=== PATIENT | male | born 1945 | race Caucasian/White ===

== ENCOUNTER 2023-12-07 04:17 | Inpatient (IN) | payer MEDICARE, SELFPAY ==
[2023-12-07] VITALS (19 sets, daily range): BP systolic 90–160; BP diastolic 40–72; PULSE 51–76; RESP 12–24; TEMP 36.5–37.2; O2SAT 86–99; BMI 32.0
--- NOTE | ~2023-12-07 | XR_ITS ---
EXAMINATION: XR chest 1V DATE: 12/07/2023 05:34 INDICATION: Cough. TECHNIQUE: A single frontal view of the chest was obtained. COMPARISON: None. FINDINGS: There is mild elevation of right hemidiaphragm. A calcified right lung nodule and calcified right hilar lymph nodes are consistent with old granulomatous disease. No pleural effusion or pneumo thorax. The heart size is normal. IMPRESSION: 1. No acute cardiopulmonary disease. Reviewed, dictated and finalized at location A.
--- NOTE | ~2023-12-07 | NM_ITS ---
Nuclear Medicine Procedure: Perfusion/Ventilation Lung Scan History: Hypoxia. Interpretation: Following inhalation of 10.4 mCi. of Xenon-133, there is symmetrical Xenon entry bila terally with no evidence for retention on the delayed washout images. 5.5 mCi. of Technetium-labeled microspheres were injected intravenously and multiple images obtained in 8 projections revealed normal perfusion to the lungs without any segmental or subsegmental defects . Impression: Low probability for pulmonary embolus. Reviewed, dictated and finalized at location . Impression: Low probability for pulmonary embolus.
--- NOTE | ~2023-12-07 | CT_ITS ---
EXAMINATION:CT diagnostic chest wo con DATE: 12/07/2023 07:37 INDICATION: Hypoxia. Respiratory failure. TECHNIQUE: Computed tomography (CT) of the chest was performed without intravenous contrast. Automate d exposure control and iterative reconstruction technique were employed. The dose-length product (DLP ) was 275.81 mGy-cm. COMPARISON: None. FINDINGS: There is mild scarring at the lung apices. There is mild atelectasis bilaterally. A calcifi ed right lung nodule and calcified right hilar and mediastinal lymph nodes are consistent with old gr anulomatous disease. No pleural effusion. The heart size is normal. There are coronary artery calcifi cations. No pericardial effusion. Calcifications in the liver and spleen are consistent with old gran ulomatous disease. There is moderate thoracic spondylosis. There are multiple chronic vertebral body fractures. IMPRESSION: 1. Mild atelectasis in the lungs. Mild scarring at the lung apices. Reviewed, dictated and finalized at location A.
--- NOTE | ~2023-12-07 | CT_ITS ---
EXAMINATION: CT brain wo con DATE: 12/07/2023 05:32 INDICATION: Altered mental status. TECHNIQUE: Computed tomography (CT) of the head was performed without intravenous contrast. The mA wa s adjusted according to patient size. Iterative reconstruction technique was employed. The dose-lengt h product was 1362.00 mGy-cm. COMPARISON: None FINDINGS: There are scattered areas of low attenuation in the cerebral white matter. There is no intr acranial hemorrhage, acute infarction, or abnormal intracranial mass lesion. The ventricles are lewis l in size. There are likely changes of ocular lens replacement surgeries. The paranasal sinuses are c lear. There is a small left mastoid effusion. IMPRESSION: 1. Moderate nonspecific cerebral white matter disease, which likely represents chronic small vessel i schemic disease. Reviewed, dictated and finalized at location A. IMPRESSION: 1. Moderate nonspecific cerebral white matter disease, which likely represents chronic small vessel ischemic disease.
--- NOTE | ~2023-12-07 | MR_ITS ---
EXAMINATION: MR brain/brain stem wo/w con DATE: 12/07/2023 14:31 INDICATION: Transient dizziness and confusion. Dysarthria. TECHNIQUE: Magnetic resonance imaging (MRI) of the brain and brainstem was performed without and with 17 mL MultiHance intravenous contrast. COMPARISON: Head CT 12/07/2023 FINDINGS: There are scattered areas of nonspecific increased T2-weighted signal intensity in the cere bral and cerebellar white matter. There is no intracranial hemorrhage, acute infarction, or abnormal intracranial mass lesion. The ventricles are normal in size. There are bilateral mastoid effusions, l eft worse than right. There are likely changes of ocular lens replacement surgeries. The paranasal si nuses are clear. IMPRESSION: 1. Moderate nonspecific cerebral and cerebellar white matter disease, which likely represents chronic small vessel ischemic disease. Reviewed, dictated and finalized at location A. IMPRESSION: 1. Moderate nonspecific cerebral and cerebellar white matter disease, which lik roseanna represents chronic small vessel ischemic disease.
[2023-12-07 04:23] LABS: Glucose Point of Care 91 mg/dl (65-105)
--- NOTE | 2023-12-07 04:28 | ECG_ITS ---
Test Date: 2023-12-07 04:31:46 Measurements Intervals [place] Rate: 74 P: 11 CT: 170 QRS: 0 QRSD: 155 T: -18 QT: 382 QTc: 425 Interpretive Statements SINUS RHYTHM RIGHT BUNDLE BRANCH BLOCK BASELINE ARTIFACT- I, III, AVR, AVL, AVF, V4-V6 ABNORMAL ECG No previous ECG available for comparison Electronically Signed On 12-07-2023 07:53:24 CDT by Shawn Yanez D.O.
[2023-12-07 05:02] LABS: Alveolar/Arterial O2 Gradient 97.7 mmHg; Fractional Inspired Oxygen 28 %; HCO3 ABG 21.6 mEq/l (22.0-26.0); Oxygen Content ABG 14.9 %vol (16.0-22.0); Oxygen Saturation ABG 92.9 % (95.0-100.0); Oxyhemoglobin 90.5 % THb (90.0-100.0); PCO2 ABG 33.2 mmHg (35.0-45.0); PO2 ABG 62.8 mmHg (80.0-100.0); PO2 FiO2 Ratio Arterial Blood 2.24 %; Total Hemoglobin 11.7 g/dL (12.0-18.0); pH ABG 7.432 (7.350-7.450)
[2023-12-07 05:03] LABS: Device NASAL CANNULA; Modified Allen's Test Pass; Site Drawn LEFT RADIAL
--- NOTE | 2023-12-07 05:07 | ED.GENADULT ---
HPI - General Adult General Chief complaint: Altered Mental Status <Wicho Bender MD - Last Filed: 12/07/23 07:11> Stated complaint: AMS <Wicho Bender MD - Last Filed: 12/07/23 07:11> Time Seen by Provider: 12/07/23 04:23 <Wicho Bender MD - Last Filed: 12/07/23 07:11> History of Present Illness HPI narrative: Patient 78-year-old gentleman who presents emergency department with chief complaint of altered mental status. Per the patient's family the patient with to bed this evening around 10-10 30 the patient woke up this morning and was confused and not acting his normal self the patient was doing okay today and had both his COVID and pneumonia vaccines at his primary care doctor's office patient reported that he was having headache and reports that he just does not feel well when the patient presented to the emergency department the patient had a room air saturation of 86% on room air the patient is not normally on oxygen does use CPAP at night when he sleeping patient has history of multiple myeloma and has had a stem cell transplant and his last treatment was between 2017 and 2019. <Wicho Bender MD - Last Filed: 12/07/23 07:11> Related Data Allergies/adverse reactions: Allergies Allergy/AdvReac Type Severity Reaction Status Date / Time No Known Allergies Allergy Verified 12/07/23 04:26 <Wicho Bender MD - Last Filed: 12/07/23 07:11> Review of Systems Review of Systems: A 10 system review of systems was completed on the patient and is negative except for what is stated in the HPI. Nursing and ancillary documentation was reviewed. <Wicho Bender MD - Last Filed: 12/07/23 07:11> Exam Narrative: GENERAL: Well-appearing, well-nourished, and in no acute distress. HEAD: Normocephalic, atraumatic. EYES: PERRLA and EOMI. ENT: Nares clear, no rhinorrhea or epistaxis. Mucous membranes moist. NECK: Supple. CHEST: Clear to auscultation. No respiratory distress. HEART: Regular rate and rhythm. No murmur heard. Normal peripheral pulses. ABDOMEN: Soft, nontender, nondistended, normal active bowel sounds. EXTREMITIES: Normal range of motion. No edema. SKIN: Warm, dry, no rash. NEURO: No focal deficits. Alert and oriented x3, somewhat confused. PSYCH: Normal mood and affect. <Wicho Bender MD - Last Filed: 12/07/23 07:11> Course Course Emergency Course: ZERIKA 09: Patient signed out to me pending completion of workup. In summary an 78 old male presenting period of confusion and hypoxia after receiving his COVID/pneumococcal vaccines yesterday. On my evaluation the morning his mental status has improved back to baseline however he is still hypoxic on room air. Chest x-ray is clear. CT non-con showed atelectasis. Lung sounds are clear. Viral swabs negative. Patient has increasing trop .038 ->.055 and minor elevations in BNP. A D-dimer was added which was elevated at 3.1. Patient is a kidney donor w/ 1 function kidney. The kidney was damaged from gzygk-yfzemc-gyyp disease and he has a baseline creatinine of 2.2 which is at 2.7 today. Patient will need further workup for PE either V/Q scan or CT PE based on hospitalist discretion. He has been given a dose of lovenox for AC. Patient will be admitted for further management. <Alvarez Parson MD - Last Filed: 12/07/23 09:42> Vital Signs Vital signs: Vital Signs Temperature 97.7 F 12/07/23 04:21 Pulse Rate 76 12/07/23 04:21 Respiratory Rate 24 H 12/07/23 04:21 Blood Pressure 160/66 H 12/07/23 04:21 Pulse Oximetry 86 L 12/07/23 04:21 Oxygen Delivery Room Air 12/07/23 04:21 Temperature 97.7 F 12/07/23 04:21 Pulse Rate 65 12/07/23 08:51 Respiratory Rate 22 H 12/07/23 08:06 Blood Pressure 124/54 L 12/07/23 08:06 Pulse Oximetry 94 12/07/23 08:06 Oxygen Delivery Nasal Cannula 12/07/23 04:36 Oxygen Flow Rate 2
[2023-12-07] MEDS: SODIUM CHLORIDE 0.9% IV 1,000 ML 999 ML IV CONT ×2 (05:13→07:17)
[2023-12-07 05:25] LABS: Basophils Percent Auto 0.3 % (0.2-1.2); Eosinophils Absolute Auto 0.1 K/mm3 (0-0.3); Eosinophils Percent Auto 1.1 % (0-4.4); Hematocrit 33.5 % (42.0-52.0); Immature Granulocyte Absolute 0.02 K/mm3 (0.00-0.031); Immature Granulocyte Percent A 0.3 % (0-0.5); Immature Platelet Fraction Pct 1.2 % (0.9-11.2); Lymphocytes Absolute Auto 0.26 K/mm3 (0.9-3.2); Lymphocytes Percent Auto 4.1 % (18.3-44.2); Mean Corpuscular HGB Conc 32.8 g/dl (32-36); Mean Corpuscular Hemoglobin 33.3 pg (26-34); Mean Corpuscular Volume 101.5 fl (80-100); Mean Platelet Volume 9.8 fl (7.4-10.4); Monocytes Absolute Auto 0.7 K/mm3 (0.1-0.6); Monocytes Percent Auto 11.6 % (2.6-8.5); Neutrophils Absolute Auto 5.2 K/mm3 (1.3-6.7); Neutrophils Percent Auto 82.6 % (45.5-73.1); Platelet Count Result 149 k/mm3 (150-375); Red Cell Distribution Width 13.9 % (11.5-14.5); White Blood Count 6.3 K/mm3 (4.5-10.0)
[2023-12-07 05:30] LABS: Add Urine Microscopic? YES; Appearance Urine Clear (Clear); Bacteria Urine None Seen /hpf; Bilirubin Urine Negative (Negative); Blood Urine 2+ (Negative); Color Urine Yellow (Yellow); Glucose Urine UA 2+ mg/dL (Negative); Ketones Urine Negative (Negative); Leukocyte Esterase Ur Trace LEU/UL (Negative); Nitrate Urine Negative (Negative); Non Pathogenic Casts 0-2; Protein Urine 2+ mg/dL (Negative); Specific Grav Ur 1.014 (1.001-1.035); Squamous Epithelial Cell Urine None Seen /hpf (Few); Urobilinogen Urine 0.2 mg/dL (<2.0); WBC Urine 0-5 /hpf (0-3); pH Urine 5.5 (5.0-9.0)
[2023-12-07 05:35] LABS: Prothrombin Time 13.3 Seconds (11.1-14.7)
[2023-12-07 05:36] LABS: Alanine Aminotransferase 18 U/L (6-50); Albumin Level 3.6 g/dL (3.5-5.1); Alkaline Phosphatase 74 U/L (38-126); Anion Gap 9 mmol/L (4-12); Aspartate Amino Transferase 21 U/L (17-59); Bilirubin,Total 0.3 mg/dL (0.2-1.3); Blood Urea Nitrogen 48 mg/dL (9-20); Calcium 8.7 mg/dL (8.4-10.2); Carbon Dioxide 24 mmol/L (22-30); Chloride 104 mmol/L (98-107); Estimated CRCL calculation 21 ml/min; Estimated Glomerular Filt Rate 23; Glucose 101 mg/dL (65-110); Magnesium 2.1 mg/dL (1.6-2.3); Potassium 4.4 mmol/L (3.4-5.0); Sodium 137 mmol/L (137-145)
[2023-12-07 05:37] LABS: Lactic Acid Reflex 1.3 mmol/L (0.7-2.0)
[2023-12-07 05:53] LABS: Procalcitonin 0.4 ng/mL
[2023-12-07 06:03] LABS: NT Pro B Type Natriuretic Pept 617 pg/mL (19.9-100); Troponin I 0.038 ng/mL (0.000-0.034)
--- NOTE | 2023-12-07 07:17 | PC.NURSE ---
EDP Zych at bedside requesting to discontinue oxygen and see how patient responds.
[2023-12-07] MEDS: ASPIRIN 81 MG CHEWABLE TABLET 324 MG PO (07:45)
[2023-12-07 08:42] LABS: Troponin I 0.055 ng/mL (0.000-0.034)
[2023-12-07] MEDS: ENOXAPARIN 100 MG/ML SYRINGE 90 MG SUB-Q (08:43)
[2023-12-07 09:28] LABS: Influenza A QL RT-PCR Negative (Negative); Influenza B QL RT-PCR Negative (Negative); RSV RNA, RT-PCR Negative (Negative); SARS-CoV-2 RNA PCR Negative (Negative)
--- NOTE | 2023-12-07 10:15 | ADMGEN ---
This patient, Adam Banks, was admitted to IMU Room 207-01. Patient/family oriented to hospital policies and general routines including ID bracelet, bed and alarms, visiting hours, pain management, procedures, bathroom and other care routines, personal items, smoking policy, room service/diet, and visiting hours. Information on how to activate the Rapid Response Team has been discussed. Patient/Family are encouraged to report perceived risks to care and to ask questions if they do not understand what they are told or what they should do.
--- NOTE | 2023-12-07 12:27 | PM.IMHP ---
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 HPI obtained through patient interview, patient's , and chart review. Per the patient's family member, the patient went to bed at 10-10:30 p.m. in his normal state of health. He reported a little fatigue and achiness to his (received COVID and Flu vaccine earlier that day). Patient then woke up this morning at 3:00 a.m. confused. The reports that he got up to use the restroom and accidentally urinated a small amount on the floor which is unusual for him. Patient then sat on the side of the bed and his tried to engage him to figure out what was wrong but he would only respond with short/vague answers. Patient appeared off balance and out of it per her assessment. Due to instability they called EMS. 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 The patient reports that he felt dizzy at that time which has since fully resolved. Dizziness lasted until after arrival to the ED. He reports the confusion seemed to subside with the dizziness. The patient also endorsed a frontal headache that he describes dull, mild, and bilateral. Patient reports occasional headaches, headache seems consistent to patient's assessment to his previous ones. SANDHU has since resolved. Patient arrived to the emergency department at 86% on room air. 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 Now requiring 2 L NC to maintain sat above 92%. Currently reporting that he has been congested lately but this is typical for him at this time of year due to ragweed. Denies cough, shortness of breath, chest pain, N/V/D. Initial VS at presentation: 97.7? F, HR 76, RR 24, 160/66, and 86% on RA ED workup showed: No leukocytosis, hemoglobin 11.0 (no previous available for comparison), elevated D-dimer, creatinine 2.7 and GFR 23, initial troponin 0.038, BNP 6.7, and UA not consistent with UTI. CXR showed no acute cardiopulmonary disease. Chest CT showed mild atelectasis in the lungs and mild scarring at the lung apices. Head CT showed moderate nonspecific cerebral white matter disease. Review of Systems Review of Systems: All systems reviewed & are unremarkable except as noted in HPI and below PMFSH Past Medical History Medical History (Updated 12/07/23 @ 13:18 by Luisa Sheth APRN) Acute myeloid leukemia Arthritis Asthma DVT (deep venous thrombosis) Gout GVHD (graft versus host disease) HLD (hyperlipidemia) HTN (hypertension) Multiple myeloma Osteoporosis Sleep apnea Surgical History Surgical History (Updated 12/07/23 @ 14:31 by Luisa Sheth APRN) History of appendectomy History of bilateral cataract extraction History of corneal transplant (2019) History of nephrectomy History of tonsillectomy Social History Social History Smoking status: Never smoker Alcohol intake: never Substance use: never Substance use type: does not use Do You Feel Safe in your Home?: Yes Lack of Transportation: No Lack of Food: Never True Current Housing: I Have Housing Concerned About Future Housing: No Difficulty Paying Gas/Electric Bills: No Difficulty Paying for Meds: No Currently Unemployed: No Education: Decline to Answer Difficulty w/ Childcare or Family Care: No Spiritual care concerns: No Meds Home Medications and Allergies Home Medications Medication Instructions Recorded Confirmed Type allopurinol 100 mg tab
[2023-12-07 12:59] LABS: Creatine Kinase 70 U/L (55-170)
[2023-12-07 13:57] LABS: Troponin I 0.055 ng/mL (0.000-0.034)
[2023-12-07 14:13] LABS: Creatinine Urine 65.8 mg/dL; Total Protein Urine Random 119 mg/dL; Ur Ttl Prot Creatinine Ratio 1.81 mg/mg (0-0.20)
[2023-12-07 14:46] LABS: Sodium Urine Random 77 meq/L
[2023-12-07 16:31] LABS: Glucose Point of Care 105 mg/dl (65-105)
[2023-12-07] MEDS: LOSARTAN POTASSIUM 100 MG TABLET PO (18:18)
--- NOTE | 2023-12-07 18:51 | ECG_ITS ---
Test Date: 2023-12-07 18:54:45 Measurements Intervals [place] Rate: 58 P: 24 VT: 186 QRS: -2 QRSD: 162 T: -9 QT: 468 QTc: 460 Interpretive Statements SINUS BRADYCARDIA RIGHT BUNDLE BRANCH BLOCK BASELINE ARTIFACT- I, II, AVR, AVL ABNORMAL ECG Compared to ECG 12/07/2023 04:31:46 HEART RATE HAS DECREASED Electronically Signed On 12-08-2023 07:24:57 CDT by Shawn Yanez D.O.
[2023-12-07 20:10] LABS: Glucose Point of Care 108 mg/dl (65-105)
[2023-12-07] MEDS: FLUTICASONE/SALMETEROL 115-21 MCG INHALER 1 PUFF 2 PUFF INHALATION (20:36)
[2023-12-07] MEDS: LORATADINE 10 MG TABLET PO (21:11)
[2023-12-07] MEDS: ROSUVASTATIN 10 MG TABLET PO (21:11)
[2023-12-07] MEDS: FLUTICASONE PROPIONATE 0.05% NA SPR 16 GM BTL (*BKC) 1 SPRAY NASAL (21:11)
[2023-12-07] MEDS: allopurinoL 100 MG TABLET PO (21:11)
[2023-12-07] MEDS: MONTELUKAST SODIUM 10 MG TABLET PO (21:11)
[2023-12-08] VITALS (22 sets, daily range): BP systolic 117–173; BP diastolic 42–72; PULSE 55–82; RESP 12–20; TEMP 36.5–36.7; O2SAT 95–98
[2023-12-08 04:35] LABS: Basophils Percent Auto 0.5 % (0.2-1.2); Eosinophils Absolute Auto 0.1 K/mm3 (0-0.3); Eosinophils Percent Auto 2.7 % (0-4.4); Hematocrit 30.3 % (42.0-52.0); Hemoglobin 9.8 g/dL (14.0-18.0); Immature Granulocyte Absolute 0.01 K/mm3 (0.00-0.031); Immature Granulocyte Percent A 0.2 % (0-0.5); Lymphocytes Percent Auto 11.3 % (18.3-44.2); Mean Corpuscular HGB Conc 32.3 g/dl (32-36); Mean Corpuscular Hemoglobin 33.2 pg (26-34); Mean Corpuscular Volume 102.7 fl (80-100); Mean Platelet Volume 9.7 fl (7.4-10.4); Monocytes Absolute Auto 0.8 K/mm3 (0.1-0.6); Neutrophils Percent Auto 68.3 % (45.5-73.1); Platelet Count Result 123 k/mm3 (150-375); Red Blood Count 2.95 M/mm3 (4.6-6.20); Red Cell Distribution Width 14.1 % (11.5-14.5); White Blood Count 4.4 K/mm3 (4.5-10.0)
[2023-12-08 04:53] LABS: Alanine Aminotransferase 18 U/L (6-50); Albumin Level 2.9 g/dL (3.5-5.1); Alkaline Phosphatase 61 U/L (38-126); Anion Gap 4 mmol/L (4-12); Aspartate Amino Transferase 25 U/L (17-59); Bilirubin,Total 0.3 mg/dL (0.2-1.3); Blood Urea Nitrogen 44 mg/dL (9-20); Calcium 7.8 mg/dL (8.4-10.2); Carbon Dioxide 24 mmol/L (22-30); Chloride 108 mmol/L (98-107); Estimated CRCL calculation 24 ml/min; Estimated Glomerular Filt Rate 26; Glucose 100 mg/dL (65-110); Potassium 4.5 mmol/L (3.4-5.0); Sodium 136 mmol/L (137-145)
[2023-12-08] MEDS: FLUTICASONE/SALMETEROL 115-21 MCG INHALER 1 PUFF 2 PUFF INHALATION ×2 (08:03→20:20)
[2023-12-08] MEDS: predniSONE 5 MG TABLET PO (09:33)
[2023-12-08] MEDS: FLUTICASONE PROPIONATE 0.05% NA SPR 16 GM BTL (*BKC) 1 SPRAY NASAL ×2 (09:34→19:58)
[2023-12-08] MEDS: prednisoLONE ACETATE 1% OPHTH 5 ML 1 DROP LEFT EYE (09:34)
[2023-12-08] MEDS: ENOXAPARIN 100 MG/ML SYRINGE 90 MG SUB-Q (09:34)
[2023-12-08] MEDS: FAMOTIDINE 20 MG TABLET PO (09:34)
[2023-12-08] MEDS: EMPAGLIFLOZIN 25 MG TABLET PO (09:34)
[2023-12-08] MEDS: valACYclovir HCL 500 MG TABLET PO (09:34)
--- NOTE | 2023-12-08 12:10 | PM.IMPN ---
Progress Note: A&P Assessment and Plan (1) Altered mental status: Qualifiers: Altered mental status type: disorientation Qualified Code(s): R41.0 - Disorientation, unspecified Code(s): R41.82 - Altered mental status, unspecified Status: Acute (2) Acute hypoxemic respiratory failure: Code(s): J96.01 - Acute respiratory failure with hypoxia Status: Acute (3) Elevated troponin: Code(s): R79.89 - Other specified abnormal findings of blood chemistry Status: Acute (4) Acute kidney injury: Code(s): N17.9 - Acute kidney failure, unspecified Status: Suspected (5) Sleep apnea: Qualifiers: Sleep apnea type: unspecified type Qualified Code(s): G47.30 - Sleep apnea, unspecified Code(s): G47.30 - Sleep apnea, unspecified Status: Chronic Plan 78 y/o M presents here with altered mental status with 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 HPI obtained through patient interview, patient's , and chart review. Per the patient's family member, the patient went to bed at 10-10:30 p.m. in his normal state of health. He reported a little fatigue and achiness to his (received COVID and Flu vaccine earlier that day). Patient then woke up this morning at 3:00 a.m. confused. The reports that he got up to use the restroom and accidentally urinated a small amount on the floor which is unusual for him. Patient then sat on the side of the bed and his tried to engage him to figure out what was wrong but he would only respond with short/vague answers. Patient appeared off balance and out of it per her assessment. Due to instability they called EMS. 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 The patient reports that he felt dizzy at that time which has since fully resolved. Dizziness lasted until after arrival to the ED. He reports the confusion seemed to subside with the dizziness. The patient also endorsed a frontal headache that he describes dull, mild, and bilateral. Patient reports occasional headaches, headache seems consistent to patient's assessment to his previous ones. SANDHU has since resolved. Patient arrived to the emergency department at 86% on room air. 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 Now requiring 2 L NC to maintain sat above 92%. Currently reporting that he has been congested lately but this is typical for him at this time of year due to ragweed. Denies cough, shortness of breath, chest pain, N/V/D. Initial VS at presentation: 97.7? F, HR 76, RR 24, 160/66, and 86% on RA ED workup showed: No leukocytosis, hemoglobin 11.0 (no previous available for comparison), elevated D-dimer, creatinine 2.7 and GFR 23, initial troponin 0.038, BNP 6.7, and UA not consistent with UTI. CXR showed no acute cardiopulmonary disease. Chest CT showed mild atelectasis in the lungs and mild scarring at the lung apices. Head CT showed moderate nonspecific cerebral white matter disease. Altered mental status head CT with moderate nonspecific cerebral white matter disease which likely represents chronic small vessel ischemic disease. Brain MRI negative stroke. Negative for infection viral PCR and UDS negative. CT chest was negative for any infection. Acute hypoxic respiratory failure hypoxic at 86% on room air on arrival to the ED. chest with mild atelectasis in the lungs mild scarring at the lung bases. Due to renal dysfunction V/Q scan is ordered to be done in the morning. He has been covered with low ox 1 milligram/kilos every 24 hours next elevated troponin with flat trajectory. No chest pain echo ordered. Line ANA MARIA creatinin
[2023-12-08] MEDS: CHLORTHALIDONE 25 MG TABLET PO (12:30)
[2023-12-08] MEDS: LOSARTAN POTASSIUM 100 MG TABLET PO (17:01)
[2023-12-08] MEDS: allopurinoL 100 MG TABLET PO (19:58)
[2023-12-08] MEDS: MONTELUKAST SODIUM 10 MG TABLET PO (19:58)
[2023-12-08] MEDS: LORATADINE 10 MG TABLET PO (19:58)
[2023-12-08] MEDS: ROSUVASTATIN 10 MG TABLET PO (19:59)
[2023-12-09] VITALS (12 sets, daily range): BP systolic 151–166; BP diastolic 53–72; PULSE 53–88; RESP 18–20; TEMP 36.5–36.8; O2SAT 94–98
[2023-12-09 05:19] LABS: Basophils Percent Auto 0.5 % (0.2-1.2); Eosinophils Absolute Auto 0.1 K/mm3 (0-0.3); Eosinophils Percent Auto 2.7 % (0-4.4); Hematocrit 29.6 % (42.0-52.0); Hemoglobin 9.8 g/dL (14.0-18.0); Immature Granulocyte Absolute 0.01 K/mm3 (0.00-0.031); Immature Granulocyte Percent A 0.2 % (0-0.5); Lymphocytes Absolute Auto 0.68 K/mm3 (0.9-3.2); Lymphocytes Percent Auto 15.5 % (18.3-44.2); Mean Corpuscular HGB Conc 33.1 g/dl (32-36); Mean Corpuscular Hemoglobin 33.4 pg (26-34); Mean Platelet Volume 9.7 fl (7.4-10.4); Monocytes Absolute Auto 0.6 K/mm3 (0.1-0.6); Monocytes Percent Auto 13.7 % (2.6-8.5); Neutrophils Percent Auto 67.4 % (45.5-73.1); Platelet Count Result 141 k/mm3 (150-375); Red Blood Count 2.93 M/mm3 (4.6-6.20); Red Cell Distribution Width 13.8 % (11.5-14.5); White Blood Count 4.4 K/mm3 (4.5-10.0)
[2023-12-09 05:30] LABS: Alanine Aminotransferase 20 U/L (6-50); Albumin Level 3.1 g/dL (3.5-5.1); Alkaline Phosphatase 68 U/L (38-126); Anion Gap 7 mmol/L (4-12); Aspartate Amino Transferase 24 U/L (17-59); Bilirubin,Total 0.3 mg/dL (0.2-1.3); Blood Urea Nitrogen 38 mg/dL (9-20); Calcium 8.2 mg/dL (8.4-10.2); Carbon Dioxide 23 mmol/L (22-30); Chloride 108 mmol/L (98-107); Estimated CRCL calculation 26 ml/min; Estimated Glomerular Filt Rate 29; Glucose 108 mg/dL (65-110); Magnesium 2.2 mg/dL (1.6-2.3); Potassium 4.1 mmol/L (3.4-5.0); Sodium 138 mmol/L (137-145)
--- NOTE | 2023-12-09 06:00 | ECHO_ITS ---
Patient Info Name: Adam Banks Age: 78 years : 1945 Gender: Male Ht: 67 in Wt: 198 lbs BSA: 2.09 m2 HR: 55 bpm BP: 151 / 53 mmHg Heart Rhythm: Sinus Rhythm Technical Quality: Fair Exam Date: 12/09/2023 12:00 PM Exam Location: Echo Lab Patient Status: Inpatient Admit Date: 12/07/2023 Staff Ordering Physician: Alvarez Parson MD Warranty Manager: Herbert Pompa RDCS Attending Provider: Leslie Powers MD Referring Physician: Blank ZHOU; Exam Type: CA echo doppler color flow Study Info Indications - hypoxic resp failure Complete two-dimensional, color flow and Doppler transthoracic echocardiogram is performed. Summary 1. Complete two-dimensional, color flow and Doppler transthoracic echocardiogram is performed. 2. Mild concentric left ventricular hypertrophy with well-preserved systolic function and grade 1 diastolic noncompliance. 3. Trivial to mild aortic regurgitation. Left Ventricle Left ventricular chamber dimension is normal. Left ventricular systolic function is normal, estimated at 65-70%. There is mild concentric increased left ventricular wall thickness. The left ventricular diastolic function is grade I diastolic dysfunction. Right Ventricle Right ventricular chamber dimension is normal. Right Atria Right atrial chamber dimension is normal. Aortic Valve The aortic valve is normal. There is mild aortic valve regurgitation. Pulmonic Valve The pulmonic valve is not well visualized. Mitral Valve The mitral valve has normal leaflets. Tricuspid Valve The tricuspid valve leaflets are normal. Pericardium/Pleural The pericardium appears normal. Aorta The aortic root size at the sinus of Valsalva is normal. Left Ventricular Outflow Tract Name Value Normal LVOT 2D LVOT Diameter 2.0 cm LVOT Doppler LVOT Peak Gradient 10 mmHg LVOT Mean Gradient 5 mmHg LVOT VTI 33 cm LVOT VTI/AV VTI Ratio 1.0 LVOT Stroke Volume 99 ml LVOT CO 7.0 l/min LVOT CI 3.4 l/min/m2 Pulmonic Valve Name Value Normal PV Doppler PV Peak Gradient 9 mmHg Mitral Valve Name Value Normal MV Doppler MV Decel [place] 405 cm/s2 MV PHT 64 ms MV Area (PHT) 3.5 cm2 4.0-5.0 MV Diastolic Function MV E Peak Velocity 89 cm/s MV A Peak Velocity 95 cm/s MV E/A
[2023-12-09] MEDS: FLUTICASONE/SALMETEROL 115-21 MCG INHALER 1 PUFF 2 PUFF INHALATION (07:46)
--- NOTE | 2023-12-09 08:40 | PM.DS ---
DS: Admitting Diagnosis Discharge Date 12/09/2023 Admitting Diagnosis Altered mental status DS: Discharge Diagnosis Discharge Diagnosis (1) Altered mental status: Qualifiers: Altered mental status type: disorientation Qualified Code(s): R41.0 - Disorientation, unspecified Code(s): R41.82 - Altered mental status, unspecified Status: Acute (2) Acute hypoxemic respiratory failure: Code(s): J96.01 - Acute respiratory failure with hypoxia Status: Acute (3) Elevated troponin: Code(s): R79.89 - Other specified abnormal findings of blood chemistry Status: Acute (4) Acute kidney injury: Code(s): N17.9 - Acute kidney failure, unspecified Status: Suspected (5) Sleep apnea: Qualifiers: Sleep apnea type: unspecified type Qualified Code(s): G47.30 - Sleep apnea, unspecified Code(s): G47.30 - Sleep apnea, unspecified Status: Chronic DS: Summary Hospital Course Hospital Course: 78 y/o M presents here with altered mental status with 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 HPI obtained through patient interview, patient's , and chart review. Per the patient's family member, the patient went to bed at 10-10:30 p.m. in his normal state of health. He reported a little fatigue and achiness to his (received COVID and Flu vaccine earlier that day). Patient then woke up this morning at 3:00 a.m. confused. The reports that he got up to use the restroom and accidentally urinated a small amount on the floor which is unusual for him. Patient then sat on the side of the bed and his tried to engage him to figure out what was wrong but he would only respond with short/vague answers. Patient appeared off balance and out of it per her assessment. Due to instability they called EMS. 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 The patient reports that he felt dizzy at that time which has since fully resolved. Dizziness lasted until after arrival to the ED. He reports the confusion seemed to subside with the dizziness. The patient also endorsed a frontal headache that he describes dull, mild, and bilateral. Patient reports occasional headaches, headache seems consistent to patient's assessment to his previous ones. SANDHU has since resolved. Patient arrived to the emergency department at 86% on room air. 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 Now requiring 2 L NC to maintain sat above 92%. Currently reporting that he has been congested lately but this is typical for him at this time of year due to ragweed. Denies cough, shortness of breath, chest pain, N/V/D. Initial VS at presentation: 97.7? F, HR 76, RR 24, 160/66, and 86% on RA ED workup showed: No leukocytosis, hemoglobin 11.0 (no previous available for comparison), elevated D-dimer, creatinine 2.7 and GFR 23, initial troponin 0.038, BNP 6.7, and UA not consistent with UTI. CXR showed no acute cardiopulmonary disease. Chest CT showed mild atelectasis in the lungs and mild scarring at the lung apices. Head CT showed moderate nonspecific cerebral white matter disease. Altered mental status head CT with moderate nonspecific cerebral white matter disease which likely represents chronic small vessel ischemic disease. Brain MRI negative stroke. Negative for infection viral PCR and UDS negative. CT chest was negative for any infection. Acute hypoxic respiratory failure hypoxic at 86% on room air on arrival to the ED. chest with mild atelectasis in the lungs mild scarring at the lung bases. Due to renal dysfunction V/Q scan is ordered low probability for PE. He has been cove
[2023-12-09] MEDS: FLUTICASONE PROPIONATE 0.05% NA SPR 16 GM BTL (*BKC) 1 SPRAY NASAL (08:51)
[2023-12-09] MEDS: prednisoLONE ACETATE 1% OPHTH 5 ML 1 DROP LEFT EYE (08:51)
[2023-12-09] MEDS: FAMOTIDINE 20 MG TABLET PO (08:52)
[2023-12-09] MEDS: EMPAGLIFLOZIN 25 MG TABLET PO (08:52)
[2023-12-09] MEDS: valACYclovir HCL 500 MG TABLET PO (08:52)
[2023-12-09] MEDS: predniSONE 5 MG TABLET PO (08:52)
[2023-12-09] MEDS: ENOXAPARIN 100 MG/ML SYRINGE 90 MG SUB-Q (08:54)
[2023-12-09] MEDS: CHLORTHALIDONE 25 MG TABLET PO (13:02)
== END 2023-12-09 16:17 | disposition home or self-care (01) | DRG 189 ==
LOC: ANHED 08:43 → ANHIMU 10:10
PROVIDERS: Emergency Medicine; Student in an Organized Health Care Education/Training Program; Admitting Provider Internal Medicine; Emergency Provider Emergency Medicine; Visit Provider Internal Medicine
DX: J96.01 Acute respiratory failure with hypoxia (principal); N17.9 Acute kidney failure, unspecified; Z94.84 Stem cells transplant status; D89.813 Graft-versus-host disease, unspecified; R41.82 Altered mental status, unspecified; N18.9 Chronic kidney disease, unspecified; I10 Essential (primary) hypertension; R79.89 Other specified abnormal findings of blood chemistry; E78.5 Hyperlipidemia, unspecified; M81.0 Age-related osteoporosis without current pathological fracture; G47.61 Periodic limb movement disorder; G47.30 Sleep apnea, unspecified; Z20.822 Contact with and (suspected) exposure to COVID-19; Z85.79 Personal history of other malignant neoplasms of lymphoid, hematopoietic and related tissues; Z86.718 Personal history of other venous thrombosis and embolism; Z94.7 Corneal transplant status; Z52.4 Kidney donor
CPT/HCPCS: 36415; 36600; 70450; 70553; 71045; 71250; 78582; 80053; 81001; 82550; 82570; 82805; 82810; 82948; 83605; 83735; 83880; 84145; 84156; 84300; 84484; 85025; 85055; 85380; 85610; 85730; 87637; 93005; 93306; 94640; 96360; 96361; 96372; 99285; A9270; A9540; A9558; A9577; J1650; J7030; J7512